=== PATIENT | female | born 1940 | race American Indian/Alaskan Native ===

== ENCOUNTER 2016-12-26 09:15 | Outpatient (CLI) | payer MEDICARE ==
--- NOTE | 2016-12-26 13:46 | Magnetic Resonance Report ---
MR scan of the cranium was performed with and without contrast. Pulse sequences included: 1. T1 weighted sagittal and axial images without contrast and T1 axial images with contrast and coronal and sagittal reformatted images with contrast 2. T2 weighted axial and coronal images 3. FLAIR axial images 4. Diffusion-weighted axial images 5. Apparent diffusion coefficient images 6. Axial gradient echo images Views of the posterior fossa showed a normal craniocervical junction. Cerebellar pontine angles were normal with normal seventh-eighth nerve complexes. Brainstem showed a small fabi of increased signal in the right later basis pontis on FIESTA images but not on any other series. Cerebellum was normal. The ventricular system showed no dilatation or distortion. Images of the hemispheres showed no areas of increased or decreased signal. Sinuses, flow voids in the [place], orbits, and basal ganglia were normal. Pituitary showed a partially empty sella. There are no abnormal areas of enhancement with contrast. Impression: Mildly abnormal MR scan of the cranium with and without contrast a. small area of increased signal in the right seth -- may be a vascular structure-- only seen on FIESTA images b. partially empty sella turcica
== END 2016-12-26 09:16 | disposition home or self-care (01) ==
LOC: SPVIMAG 09:15
PROVIDERS: ATTEND Specialist
DX: G93.89 Other specified disorders of brain (principal); R46.2 Strange and inexplicable behavior
CPT/HCPCS: 70553; A9577